=== PATIENT | male | born 1940 | race Caucasian/White ===

== ENCOUNTER 2017-03-26 06:41 | Observation (INO) | payer MEDICARE ==
[2017-03-25 16:16] LABS: HEMATOCRIT 38.4 % (40.0-51.0); HEMOGLOBIN 12.7 g/dL (13.6-17.8)
[2017-03-25 16:26] LABS: ASCORBIC ACID (UR NOT ORDER) NEG (NEG); BILIRUBIN, URINE NEGATIVE (NEG); KETONE, URINE NEGATIVE (NEG); LEUKOCYTE ESTERASE(NOT OR NEG (NEG); WBC (NOT ORDERED) (RFLEX) < 1 (0-5)
[2017-03-25 16:28] LABS: CALCIUM, SERUM 8.8 MG/DL (8.5-10.4); CHLORIDE, SERUM 108 MMOL/L (96-112); CO2 (CARBON DIOXIDE) 28 MMOL/L (24-34); CREATININE 1.32 MG/DL (0.70-1.30); GFR AFRICAN AMERICAN 60 ML/MIN (>=60); GFR NON AFRICAN AMERICAN 52 ML/MIN (>=60); GLUCOSE, SERUM 105 MG/DL (60-99); POTASSIUM, SERUM 4.4 MMOL/L (3.5-5.3); SODIUM, SERUM 143 MMOL/L (135-148)
[2017-03-25 16:30] LABS: BUN (BLOOD UREA NITROGEN) 20 MG/DL (6-23)
--- NOTE | ~2017-03-26 | OP ---
Record Of Operation [facility] [address] [facility] [place]. [address] NAME: BA RODAS : 40 STATUS : REG [facility]#: [id number] AGE: 76 ADM/REG DATE : 03/26/17 MR#: [id number] REPORT SERV DATE: 03/26/17 DICTATED BY: GEOVANNY VELEZ JR. DATE: 03/26/17 REPORT STATUS : Draft TRANSCRIBED BY: MODL DATE: 03/26/17 DATE OF PROCEDURE: 03/26/2017 SURGEON: Geovanny Velez M.D. PREOPERATIVE DIAGNOSIS: Benign prostate hypertrophy. POSTOPERATIVE DIAGNOSIS: Benign prostate hypertrophy. PROCEDURE PERFORMED: Cystoscopy, transurethral resection of the prostate. COMPLICATIONS: None. CONSULTATIONS: None. ANESTHESIA: General with an endotracheal tube. SPECIMENS: Prostate chips. DRAINS: A 24-Beninese three-way Aguirre catheter. ESTIMATED BLOOD LOSS: None. INDICATION: Mr. Rodas is a very pleasant 76-year-old gentleman, who I have been following in the office with benign prostatic hypertrophy. He has failed medical therapy with two different alpha blockade drugs. Cystoscopic examination revealed a white short prostate, however, he did have trilobar hypertrophy with an obstructing appearing bladder neck, secondary to his BPH. PROCEDURE IN DETAIL: After the patient was identified, and proper informed consent was obtained, he was taken to the operating room. General anesthesia was performed without complication using an endotracheal tube. He was then prepped and draped in normal sterile fashion in the lithotomy position. Cystoscopic examination of the urethra again reveals a normal penile and bulbous urethra. There was a trilobar hypertrophy of the prostate approximately 3 cm in length and fairly normal bladder with some trabeculation, but no diverticula, tumors, or stones. Both ureteral orifices were in their normal position and normal size. I then replaced the cystoscope with a 26-Beninese resectoscope yellow loop and resected the three lobes of the prostate from the bladder neck to the verumontanum down to the surgical capsule, with minimal bleeding present and was fairly dry at the end of the procedure. I removed the chips from the bladder using the [employer] evacuator. Inspected once more for hemostasis and to make sure all the chips had been removed. Once I was satisfied that was the case, I removed the resectoscope and placed a 24-Beninese three-way Aguirre catheter with 30 mL of sterile water in the balloon over a catheter guide placed the catheter to light traction. The patient was awakened in the operating room and transferred to the postanesthesia care unit in stable condition. Record Of Operation [facility] [place]. [address] NAME: BA RODAS : 40 STATUS : REG [facility] [place] PAT#: [id number] AGE: 76 ADM/REG DATE : 03/26/17 MR#: [id number] REPORT SERV DATE: 03/26/17 DICTATED BY: GEOVANNY VELEZ JR. DATE: 03/26/17 REPORT STATUS : Draft TRANSCRIBED BY: JACE DATE: 03/26/17 YON/JACE Geovanny Velez Jr., M.D. / [id number] CC: Viraj Roman Jr., M.D.
[~2017-03-26 06:41] MED LIST: ASAB PO; ASACOL PO; C5 PO; DILT-XR120 MG PO; DOLOPHINE10 MG PO; DOLOPHINE5 MG PO; FISH OIL1200 MG PO; FISH-EPA1000 MG PO; HALF81 PO; HYGROTON 25 MG25 MG OR; HYGROTON 25 MG25 MG PO; HYT2 PO; L20 PO; L40 PO; LASIX PO; LIDODERM T; LOPID6 PO; LOVENOX120; LYRICA150 MG PO; LYRICA225 MG PO; LYRICA300 MG PO; MIRALAX POWDER1 PKT PO; MIRAPEX250 PO; MODAFINIL PO; MSCONT15 PO; NORCO1 TA2 PO; PAXIL30 MG PO; PAXIL40 MG PO; PLAVIX PO; PRIN10 PO; PRIN2.5 PO; PRIN20 PO; PROSCAR5 PO; PROTONIX PO; PROVIGIL2 PO; REQUIP25 PO; SENNA LAX PO; SENTAB PO; ULORIC; ULORIC40 MG PO; VITAMIN B-122500 MCG SL; VITAMIN B-625 MG PO; VITAMIN D1000 UNI1 PO; XANAX1 MG PO; Z300 PO; ZESTRIL2.5 MG PO; ZESTRIL5 MG PO; ZOCOR10 PO; ZOL100 PO; ZOL50 PO
[2017-03-26 07:38] LABS: INTERNATIONAL NORMAL RATI 1.5 UNITS (-)
[2017-03-26 07:39] LABS: PROTIME (NOT ORD) 18.3 SEC (12.0-14.5)
[2017-03-26 09:49] LABS: HEMOGLOBIN 12.3 g/dL (13.6-17.8)
[2017-03-27] MEDS ORDERED: PCET PO (08:59)
== END 2017-03-27 12:15 | disposition home or self-care (01) ==
LOC: SDC 06:41 → 4SO 12:36
PROVIDERS: Urology
PROC: 0VT08ZZ Resection of Prostate, Via Natural or Artificial Opening Endoscopic (ICD-10-PCS; principal; 2017-03-26 07:45)
DX: N40.0 Benign prostatic hyperplasia without lower urinary tract symptoms (principal); K21.9 Gastro-esophageal reflux disease without esophagitis; I25.10 Atherosclerotic heart disease of native coronary artery without angina pectoris; G47.33 Obstructive sleep apnea (adult) (pediatric); E78.5 Hyperlipidemia, unspecified; I12.9 Hypertensive chronic kidney disease with stage 1 through stage 4 chronic kidney disease, or unspecified chronic kidney disease; N18.9 Chronic kidney disease, unspecified; D86.9 Sarcoidosis, unspecified; G62.9 Polyneuropathy, unspecified; I25.2 Old myocardial infarction; G25.81 Restless legs syndrome; Z86.73 Personal history of transient ischemic attack (TIA), and cerebral infarction without residual deficits; Z88.1 Allergy status to other antibiotic agents; Z99.89 Dependence on other enabling machines and devices; Z91.041 Radiographic dye allergy status; Z88.8 Allergy status to other drugs, medicaments and biological substances; Z90.5 Acquired absence of kidney; Z98.49 Cataract extraction status, unspecified eye
CPT/HCPCS: 36415; 80048; 81001; 84295; 85014; 85018; 85610; 86850; 86900; 86901; 88305; 93005; A9270-GY; G0378; J2250; J2370; J2405; J2710; J3010